=== PATIENT | female | born 1970 | race Caucasian/White ===

== ENCOUNTER 2018-01-07 16:54 | Emergency (ER) | payer OTHER ==
--- NOTE | 2018-01-07 17:12 | PDOC ---
Rapid Medical Evaluation Time Seen by Provider: 01/07/18 17:08 Medical Evaluation: I have performed a brief in-person evaluation of this patient. The patient presents with a chief complaint of: right foot/ankle injury. Patient states she was walking yesterday when she twisted her right ankle and fell on it. She is able to walk on it, has iced it and taken ibuprofen. Pertinent physical exam findings: significant swelling to right ankle and dorsum of right foot. ecchymosis to lateral malleolar region. I have ordered the following: xray right foot and ankle The patient will proceed to the ED for further evaluation. Discharge Disposition - Diagnosis Ankle injury Qualifiers: Encounter type: initial encounter Laterality: right Qualified Code(s): S99.911A - Unspecified injury of right ankle, initial encounter - Referrals - Patient Instructions - Post Discharge Activity
[2018-01-07 17:14] VITALS: BP 158/95; PULSE 75; TEMP 98.9; BMI 28.9
--- NOTE | 2018-01-07 17:39 | PDOC ---
History of Present Illness - General Chief Complaint: Injury Stated Complaint: RT FOOT INJURY Time Seen by Provider: 01/07/18 17:08 History Source: Patient Exam Limitations: No Limitations - History of Present Illness Initial Comments: 01/07/18 17:36 twisted right ankle after missing a step yesterday. pt took ibuprofen and applied ice yesterday. Severity: Yes: moderate Past History - Past Medical History Allergies/Adverse Reactions: Allergies Allergy/AdvReac Type Severity Reaction Status Date / Time No Known Allergies Allergy Verified 01/07/18 17:10 CVA: No COPD: No DVT: No Dementia: No - Immunization History Immunization Up to Date: Yes - Suicide/Smoking/Psychosocial Hx Smoking History: Never smoked Hx Alcohol Use: No Drug/Substance Use Hx: No Substance Use Type: None *Physical Exam - Vital Signs Last Vital Signs Temp Pulse Resp BP Pulse Ox 98.9 F 75 16 158/95 97 01/07/18 17:11 01/07/18 17:11 01/07/18 17:11 01/07/18 17:11 01/07/18 17:11 - Physical Exam General Appearance: Yes: Nourished, Appropriately Dressed HEENT: positive: EOMI, MELCHOR Musculoskeletal: positive: Normal Inspection Extremity: positive: Normal Capillary Refill, Tender (lateral right ankle ), Swelling Integumentary: positive: Normal Color, Dry, Warm Neurologic: positive: Fully Oriented, Alert, Normal Mood/Affect, Normal Response , Motor Strength 5/5 Procedures - Splinting Pre-Made Type: aircast (air cast , crutches) Medical Decision Making - Medical Decision Making 01/07/18 17:37 cc: twisted right ankle yesterday swelling and echymosis noted *DC/Admit/Observation/Transfer Diagnosis at time of Disposition: Ankle injury Qualifiers: Encounter type: initial encounter Laterality: right Qualified Code(s): S99.911A - Unspecified injury of right ankle, initial encounter - Discharge Dispostion Disposition: HOME Condition at time of disposition: Good - Referrals Referrals: Dae Banegas MD [Staff Physician] - - Patient Instructions Additional Instructions: elevate and apply ice every 2hrs for 20 minutes take ibuprofen 800mg every 8hrs for pain use crutches for ambulation remove the air cast splint when sleeping and bathing follow with the orthopedist next week - Post Discharge Activity
== END 2018-01-07 18:40 | disposition home or self-care (01) ==
LOC: JERFT 16:54
DX: S99.811A Other specified injuries of right ankle, initial encounter (principal); X50.1XXA Overexertion from prolonged static or awkward postures, initial encounter; Y93.01 Activity, walking, marching and hiking; Y92.89 Other specified places as the place of occurrence of the external cause; Y99.8 Other external cause status
CPT/HCPCS: 73610-TC-RT-FY; 73630-TC-RT-FY; 99281-25

== ENCOUNTER → 2018-03-06 | Day surgery (SDC) | payer OTHER ==
--- NOTE | 2018-03-09 13:21 | PATH ---
Surgical Pathology Report Patient Name: CHANELL LOUISE Med. Rec. #: [id number] /Age/Gender: 1970 (Age: 47) / F Account: [id number] Location: [facility] U Taken: 03/06/2018 Received: 03/06/2018 Reported: 03/09/2018 Physicians: Mojgan Sommers M.D. Specimen(s) Received LEFT BREAST CORE BIOPSY 4:00 1CMFN Clinical History Ultrasound findings: Suspicious Final Diagnosis BREAST, LEFT, 4:00 1 CM FN, CORE BIOPSY: FIBROADIPOSE TISSUE SHOWING MARKED ACUTE INFLAMMATION, GRANULATION TISSUE FORMATION AND HISTIOCYTIC REACTION, CONSISTENT WITH RESOLVING ABSCESS. Electronically Signed Raven Kumar M.D. Gross Description Received in formalin labeled "left breast biopsy 4:00, 1 cmfn" is a 2.0 x 1.5 x 0.2 cm aggregate of multiple aviles-yellow, irregular to cylindrical portions of fibroadipose tissue. The formalin is filtered and the specimen is entirely submitted in one cassette. Time to formalin fixation: 2 minutes Total formalin fixation time: Approximately 7 hours. /03/06/2018 saudi03/06/2018
== END | disposition home or self-care (01) ==
LOC: FRADUS-SUR 09:51
PROVIDERS: ATTEND Surgery
PROC: 0HBU3ZX Excision of Left Breast, Percutaneous Approach, Diagnostic (ICD-10-PCS; principal; 2018-03-06)
DX: N64.89 Other specified disorders of breast (principal); N63.23 Unspecified lump in the left breast, lower outer quadrant
CPT/HCPCS: 19083; 77065-TC; 87899; 88305-TC; A4648

== ENCOUNTER 2020-09-30 18:02 | Emergency (ER) | payer SELFPAY ==
[2020-09-30 18:08] VITALS: BP 157/46; PULSE 78; TEMP 98.1; BMI 28.9
== END 2020-09-30 18:27 | disposition home or self-care (01) ==
LOC: JERFT 18:02
DX: K08.89 Other specified disorders of teeth and supporting structures (principal)
CPT/HCPCS: 99283-25

== ENCOUNTER 2022-01-16 11:32 | Emergency (ER) | payer OTHER ==
[2022-01-16 11:59] VITALS: BP 115/77; PULSE 77; TEMP 98; BMI 25.7
== END 2022-01-16 13:25 | disposition home or self-care (01) ==
LOC: JERFT 11:32
DX: R25.2 Cramp and spasm (principal)
CPT/HCPCS: 99282-25

== ENCOUNTER 2024-11-10 06:05 | Day surgery (SDC) | payer OTHER ==
[2024-11-09 19:41] VITALS: BMI 26.4
[~2024-11-10 06:05] MED LIST: ACETAMINOPHEN 325 MG TABLET (FP) PO PRN
[2024-11-10] MEDS ORDERED: EPINEPHrine 1:1000 P/F - 1 MG/ML AMP ONE (07:24)
[2024-11-10] MEDS ORDERED: LIDOCAINE HCL/PF 1% SDV 5ML VIAL ONE (07:24)
[2024-11-10] MEDS ORDERED: TETRACAINE 0.5% OPHTH SOLN 2 ML BOTTLE ONE (07:24)
[2024-11-10] MEDS ORDERED: BSS (NA/CA/MG/K) BALANCED SALT SOLUTION OPHTH SOLN 15 ML BOTTLE ONE (07:25)
[2024-11-10] MEDS ORDERED: POVIDONE-IODINE 5% OPHTHALMIC PREP 30 ML SOLUTION ONE ×2 (07:25→11:23)
[2024-11-10] MEDS ORDERED: TRIAMCINOLONE ACET 40MG/1ML VIAL ONE (07:48)
[2024-11-10] MEDS ORDERED: LIDOCAINE 1%/EPI 1:100000 (20 ML MULTI DOSE VIAL) ONE (07:48)
[2024-11-10] MEDS ORDERED: OFLOXACIN 0.3% OPHTHALMIC SOLUTION 5 ML BOTTLE ONE (10:41)
[2024-11-10] MEDS: OFLOXACIN 0.3% OPHTHALMIC SOLUTION 5 ML BOTTLE OP SCH (10:46)
[2024-11-10] MEDS: TETRACAINE 0.5% OPHTH SOLN 2 ML BOTTLE OD ONE ×3 (12:29)
[2024-11-10] MEDS: POVIDONE-IODINE 5% OPHTHALMIC PREP 30 ML SOLUTION OD ONE ×2 (12:31)
[2024-11-10] MEDS: BSS (NA/CA/MG/K) BALANCED SALT SOLUTION OPHTH SOLN 15 ML BOTTLE OD ONE ×2 (12:41)
[2024-11-10] MEDS: TRIAMCINOLONE ACETONIDE 40 MG/ML 10 ML VIAL IJ ONE ×4 (12:41→13:02)
[2024-11-10] MEDS: LIDOCAINE 1%/EPI 1:100000 (20 ML MULTI DOSE VIAL) IJ ONE ×4 (12:41→12:48)
[2024-11-10 13:13] VITALS: RESP 20
[2024-11-10 13:38] VITALS: BP 132/69; PULSE 53; TEMP 97.3
== END 2024-11-10 14:02 | disposition home or self-care (01) ==
LOC: JASU-SURG 06:05
PROVIDERS: ATTEND Ophthalmology
PROC: 08U007Z Supplement of Right Eye with Autologous Tissue Substitute, Open Approach (ICD-10-PCS; principal; 2024-11-10 12:00)
DX: H11.001 Unspecified pterygium of right eye (principal)
CPT/HCPCS: 82962; 88304-TC